=== PATIENT | female | born 1995 | race Two or more races ===

== ENCOUNTER 2024-09-10 14:12 | Emergency (ER) | payer BC ==
[~2024-09-10] VITALS: Ht 165.1 cm; Wt 56.7 kg
[2024-09-10] MEDS ORDERED: LEVOTHYROXINE25 MC2 (15:22)
[2024-09-10] MEDS ORDERED: 0.9 % SODIUM CHLORIDE 1,000 ML IV ONE (16:00)
[2024-09-10] MEDS ORDERED: LACTOBACILLUS ACIDOPHILUS 1 CAP CAP PO ONE ×2 (16:00→16:02)
[2024-09-10] MEDS ORDERED: FAMOTIDINE/PF 20 MG/2 ML VIAL IV ONE (16:00)
[2024-09-10] MEDS ORDERED: ONDANSETRON HCL 2 MG/ML VIAL IV ONE (16:00)
[2024-09-10] MEDS ORDERED: ONDANSETRON HCL 2 MG/ML VIAL ONE (16:02)
[2024-09-10] MEDS ORDERED: FAMOTIDINE/PF 20 MG/2 ML VIAL ONE (16:03)
[2024-09-10 16:34] LABS: BASO % 0.2 % (0.1-1.2); EOS # 0.01 (0.04-0.54); EOS % 0.1 % (0.7-7.0); HEMATOCRIT 37.8 % (34.1-44.9); HEMOGLOBIN 13.1 g/dL (11.2-15.7); LYMPH # 0.84 (1.18-3.74); LYMPH % 8.3 % (19.3-53.1); MEAN CORPUSCULAR HEMOGLOBIN 30.2 pg (25.6-32.2); MONO # 0.33 (0.24-0.82); MONO % 3.3 % (4.7-12.5); NEUT # 8.86 (1.56-6.13); NEUT % 87.9 % (34.0-71.1); PLATELET COUNT 344 K/uL (163-369); RED BLOOD COUNT 4.34 M/uL (3.93-5.22); RED CELL DISTRIBUTION WIDTH 12.8 % (11.6-14.4)
[2024-09-10 17:06] LABS: ALBUMIN 4.1 gm/dL (3.4-5.0); BILIRUBIN TOTAL 0.74 mg/dL (0.3-1.2); CALCIUM 8.8 mg/dL (8.5-10.1); CREATININE SERUM 0.65 mg/dL (0.55-1.02); GFR 107.02; GLOBULINA 3.9 G/DL (2.4-3.5); POTASSIUM 4.11 mEq/L (3.5-5.1)
[2024-09-10] MEDS ORDERED: ONDANSETRON 4 MG TAB.RAPDIS PO ONE ×2 (18:15)
== END 2024-09-10 18:30 ==
LOC: ER 14:46
PROVIDERS: General Practice
DX: K52.9 Noninfective gastroenteritis and colitis, unspecified (principal); E03.9 Hypothyroidism, unspecified